=== PATIENT | male | born 1935 | race Caucasian/White ===

== ENCOUNTER → 2017-07-14 | Outpatient (CLI) | payer MEDICARE ==
[~2017-07-14] MED LIST: ACET1TAB25 PO; ASPI-1012 PO; ATEN50TA PO; FURO40TA5 PO; HYDR-309 PO; METO50TA18 PO; PANT40TA25 PO; PRAV40TA3 PO; PROB500T26 PO; TAMS0.4C32 PO
== END | disposition home or self-care (01) ==
LOC: RAH 08:50
PROVIDERS: ATTEND Internal Medicine
DX: Z01.818 Encounter for other preprocedural examination (principal); I50.30 Unspecified diastolic (congestive) heart failure; I12.9 Hypertensive chronic kidney disease with stage 1 through stage 4 chronic kidney disease, or unspecified chronic kidney disease; J44.9 Chronic obstructive pulmonary disease, unspecified
CPT/HCPCS: 71046

== ENCOUNTER 2017-07-22 15:00 | Inpatient (IN) | payer MEDICARE ==
[~2017-07-22] VITALS: Ht 165.1 cm; Wt 70.1 kg
[~2017-07-22 15:00] MED LIST changes: -ACET1TAB25 PO; -ASPI-1012 PO; -ATEN50TA PO; -FURO40TA5 PO; -HYDR-309 PO; -METO50TA18 PO; -PANT40TA25 PO; -PROB500T26 PO
[2017-07-22 15:10] VITALS: BP 151/68
[2017-07-22 15:39] LABS: APPEARANCE,URINE Clear (CLEAR); BILIRUBIN,URINE Negative (NEGATIVE); COLOR,URINE Yellow (YELLOW); GLUCOSE, URINE (UA) Negative (NEGATIVE); KETONES,URINE Negative (NEGATIVE); LEUKOCYTE ESTERASE ,URINE Negative (NEGATIVE); NITRATE,URINE Negative (NEGATIVE); OCCULT BLOOD,URINE Negative (NEGATIVE); PROTEIN,URINE Negative (NEGATIVE); UROBILINOGEN,URINE 0.2 mg/dL (0.2-1.0)
[2017-07-22] MEDS ORDERED: ACET1TAB25 PO (15:47)
[2017-07-22] MEDS ORDERED: PANT40TA25 PO (15:47)
[2017-07-22] MEDS ORDERED: METO50TA18 PO (15:47)
[2017-07-22] MEDS ORDERED: PROB500T26 PO (15:47)
[2017-07-25] VITALS (22 sets, daily range): BP systolic 119–188; BP diastolic 40–84
[2017-07-25] MEDS ORDERED: LACTATED RINGERS 1000ML 1,000 ML IV ONE (06:52)
[2017-07-25] MEDS: CEFAZOLIN SODIUM 1 GM VIAL IVP SCH ×4 (07:00→23:54)
[2017-07-25] MEDS ORDERED: CEFAZOLIN SODIUM 1 GM VIAL ONE ×2 (07:21→11:23)
[2017-07-25] MEDS ORDERED: TRANEXAMIC ACID 1000MG/10ML IV ONE (07:21)
[2017-07-25] MEDS ORDERED: ONDANSETRON HCL 4 MG/2 ML VIAL ONE (07:37)
[2017-07-25] MEDS ORDERED: GLYCOPYRROLATE 0.2 MG/ML 5 ML VIAL ONE (07:37)
[2017-07-25] MEDS ORDERED: NEOSTIGMINE 5MG/5ML SYR IV ONE (07:37)
[2017-07-25] MEDS ORDERED: DEXAMETHASONE SOD PHOSPHATE 10MG/ML 1ML VIAL ONE (07:37)
[2017-07-25] MEDS ORDERED: SUCCINYLCHOLINE 200MG/10ML SYR ONE (07:37)
[2017-07-25] MEDS ORDERED: LIDOCAINE PF 2% 5ML ABBOJECT ONE (07:37)
[2017-07-25] MEDS ORDERED: PROPOFOL 10 MG/ML 20ML VIAL IV ONE (07:37)
[2017-07-25] MEDS ORDERED: MIDAZOLAM HCL 1 MG/ML 2ML VIAL ONE (07:38)
[2017-07-25] MEDS ORDERED: FENTANYL CITRATE PF 50 MCG/1 ML 2ML VIAL ONE (07:38)
[2017-07-25] MEDS ORDERED: CEFAZOLIN SODIUM 1 GM VIAL IRRIG ONE (09:29)
[2017-07-25] MEDS ORDERED: POTASSIUM CHLORIDE 10% ELIXIR 20 MEQ/15 ML UDCUP PO PRN (11:45)
[2017-07-25] MEDS ORDERED: KETOROLAC TROMETHAMINE 15MG/ML IV PRN (11:45)
[2017-07-25] MEDS ORDERED: FERROUS FUMARATE 324 MG TABLET PO PRN (11:45)
[2017-07-25] MEDS ORDERED: DIPHENHYDRAMINE HCL 25 MG CAPSULE PO PRN (11:45)
[2017-07-25] MEDS ORDERED: LIDOCAINE HCL-MPF 1% 2ML VIAL IVP PRN (11:45)
[2017-07-25] MEDS ORDERED: POTASSIUM CHLORIDE 20 MEQ ERTAB PO PRN (11:45)
[2017-07-25] MEDS ORDERED: DiphenhydrAMINE HCL 50 MG/ML VIAL IVP PRN (11:45)
[2017-07-25] MEDS ORDERED: TRAMADOL HCL 50 MG TABLET PO PRN (11:45)
[2017-07-25] MEDS ORDERED: POTASSIUM CHLORIDE 20MEQ/100ML 100 ML IV PRN (11:45)
[2017-07-25] MEDS ORDERED: TEMAZEPAM 15 MG CAPSULE PO PRN (11:45)
[2017-07-25] MEDS ORDERED: CALCIUM CARBONATE 500 MG TABLET PO PRN (11:45)
[2017-07-25] MEDS ORDERED: PROMETHAZINE HCL 25 MG/ML 1ML AMPULE IM PRN (11:45)
[2017-07-25] MEDS ORDERED: OXYCODONE HCL 5 MG TAB PO PRN (11:45)
[2017-07-25] MEDS ORDERED: MORPHINE SULFATE 2 MG/ML 1ML SYG ONE (12:13)
[2017-07-25] MEDS ORDERED: MEPERIDINE-PF 50 MG/ML SYG ONE (12:30)
[2017-07-25] MEDS ORDERED: HYDRALAZINE HCL 20 MG/ML VIAL ONE (12:47)
[2017-07-25] MEDS: ACETAMINOPHEN 325 MG TAB PO SCH ×3 (15:01→23:53)
[2017-07-25] MEDS: PSYLLIUM SEED 1 EACH PACKET PO SCH (15:02)
[2017-07-25] MEDS ORDERED: CEFAZOLIN 2GM / 50 ML 50 ML IV SCH (16:45)
[2017-07-25] MEDS: SODIUM CHLORIDE 0.9% 1000ML 1,000 ML IV SCH ×2 (16:56→18:37)
[2017-07-25] MEDS: OXYCODONE HCL 5 MG TAB PO PRN (18:36)
[2017-07-25] MEDS ORDERED: ASPIRIN 325 MG TABLET PO SCH (21:00)
[2017-07-25] MEDS: CELECOXIB 200 MG CAP PO SCH (22:11)
[2017-07-25] MEDS: FAMOTIDINE 20MG TAB 20 MG TAB PO SCH (22:11)
[2017-07-25] MEDS: PREGABALIN 25 MG CAP PO SCH (22:12)
[2017-07-26 00:24] VITALS: BP 145/67
[2017-07-26 04:49] VITALS: BP 151/75
[2017-07-26] MEDS: ACETAMINOPHEN 325 MG TAB PO SCH ×3 (05:13→20:57)
[2017-07-26] MEDS: OXYCODONE HCL 5 MG TAB PO PRN (05:13)
[2017-07-26 05:16] LABS: HEMATOCRIT 28.5 % (42-54); MEAN CORPUSCULAR HEMOGLOBIN 31.2 pg (27.0-33.0); MEAN CORPUSCULAR HGB CONC 35.8 g/dL (32.0-36.0); MEAN CORPUSCULAR VOLUME 87.2 fL (79-99); PLATELET COUNT (AUTO) 157 K/uL (130-400); RED BLOOD CELL COUNT(AUTO) 3.27 MIL/uL (4.50-6.20); RED CELL DISTRIBUTION WIDTH 13.7 % (11.0-15.5); WHITE BLOOD COUNT (AUTO) 6.6 K/uL (4.8-10.8)
[2017-07-26 05:25] LABS: CREATININE 0.9 mg/dL (0.5-1.5); POTASSIUM 4.3 mmol/L (3.5-5.1)
[2017-07-26] MEDS: SODIUM CHLORIDE 0.9% 1000ML 1,000 ML IV SCH (07:38)
[2017-07-26 08:22] VITALS: BP 149/73
[2017-07-26] MEDS: PROBENECID 250 MG PO SCH ×2 (09:00→21:00)
[2017-07-26] MEDS: CELECOXIB 200 MG CAP PO SCH ×2 (09:58→20:55)
[2017-07-26] MEDS: PREGABALIN 25 MG CAP PO SCH ×2 (09:58→20:55)
[2017-07-26] MEDS: FAMOTIDINE 20MG TAB 20 MG TAB PO SCH ×2 (09:58→20:55)
[2017-07-26] MEDS: TAMSULOSIN HCL 0.4 MG CAP.ER.24H PO SCH (09:58)
[2017-07-26] MEDS: POLYETHYLENE GLYCOL 3350 17 GM POWD.PACK PO SCH (09:58)
[2017-07-26] MEDS: PANTOPRAZOLE SODIUM 40 MG TABLET.DR PO SCH (09:58)
[2017-07-26] MEDS: METOPROLOL TARTRATE 50 MG TAB PO SCH ×2 (09:58→20:55)
[2017-07-26] MEDS: PSYLLIUM SEED 1 EACH PACKET PO SCH (12:02)
[2017-07-26 12:26] VITALS: BP 116/59
[2017-07-26 17:30] VITALS: BP 115/56
[2017-07-26 20:45] VITALS: BP 115/50
[2017-07-26] MEDS: ASPIRIN 325 MG TABLET PO SCH (20:55)
[2017-07-26] MEDS ORDERED: ATORVASTATIN CALCIUM 10 MG TABLET PO SCH (21:00)
[2017-07-27 00:39] VITALS: BP 112/46
[2017-07-27 04:33] VITALS: BP 130/72
[2017-07-27] MEDS: ACETAMINOPHEN 325 MG TAB PO SCH ×2 (04:34→11:06)
[2017-07-27 06:13] LABS: CREATININE 1.1 mg/dL (0.5-1.5); POTASSIUM 4.2 mmol/L (3.5-5.1)
[2017-07-27 06:16] LABS: HEMATOCRIT 28.9 % (42-54); MEAN CORPUSCULAR HEMOGLOBIN 29.9 pg (27.0-33.0); MEAN CORPUSCULAR HGB CONC 34.2 g/dL (32.0-36.0); MEAN CORPUSCULAR VOLUME 87.3 fL (79-99); PLATELET COUNT (AUTO) 145 K/uL (130-400); RED BLOOD CELL COUNT(AUTO) 3.31 MIL/uL (4.50-6.20); RED CELL DISTRIBUTION WIDTH 13.8 % (11.0-15.5)
[2017-07-27 08:11] VITALS: BP 133/64
[2017-07-27] MEDS: ASPIRIN 325 MG TABLET PO SCH (08:36)
[2017-07-27] MEDS: POLYETHYLENE GLYCOL 3350 17 GM POWD.PACK PO SCH (08:36)
[2017-07-27] MEDS: METOPROLOL TARTRATE 50 MG TAB PO SCH (08:36)
[2017-07-27] MEDS: FAMOTIDINE 20MG TAB 20 MG TAB PO SCH (08:36)
[2017-07-27] MEDS: CELECOXIB 200 MG CAP PO SCH (08:36)
[2017-07-27] MEDS: PANTOPRAZOLE SODIUM 40 MG TABLET.DR PO SCH (08:36)
[2017-07-27] MEDS: TAMSULOSIN HCL 0.4 MG CAP.ER.24H PO SCH (08:36)
[2017-07-27] MEDS: PREGABALIN 25 MG CAP PO SCH (08:36)
[2017-07-27] MEDS: PROBENECID 250 MG PO SCH (08:37)
[2017-07-27] MEDS ORDERED: BISACODYL 5 MG TABLET.DR PO PRN ×2 (10:15→11:45)
[2017-07-27] MEDS: PSYLLIUM SEED 1 EACH PACKET PO SCH (11:33)
[2017-07-27 11:58] VITALS: BP 120/54
[2017-07-27] MEDS ORDERED: ASPI-1012 PO (12:39)
[2017-07-27] MEDS ORDERED: HYDR-309 PO (12:39)
[2017-07-28] MEDS ORDERED: BISACODYL 10 MG SUPP.RECT RC PRN (11:45)
== END 2017-07-27 16:41 | disposition home health service (06) | DRG 470 ==
LOC: EDSTATUS 15:00 → DAHIP 07-25 06:05 → 4AH 07-25 12:48
PROVIDERS: ADMIT Orthopaedic Surgery; ATTEND Orthopaedic Surgery
PROC: 0SR90JZ Replacement of Right Hip Joint with Synthetic Substitute, Open Approach (ICD-10-PCS; principal; 2017-07-25 08:20)
DX: M16.11 Unilateral primary osteoarthritis, right hip (principal); I11.0 Hypertensive heart disease with heart failure; I50.9 Heart failure, unspecified; Z96.642 Presence of left artificial hip joint; Z96.653 Presence of artificial knee joint, bilateral; M10.9 Gout, unspecified; K21.9 Gastro-esophageal reflux disease without esophagitis
CPT/HCPCS: 36415; 76000; 80048; 81003; 85027; 88304; 88311; A4218; C1713; C1776; J0330; J0360; J0690; J1100; J1885; J2001; J2175; J2250; J2405; J2704; J2710; J3010; J3490; J7030; J7120

== ENCOUNTER 2019-12-08 | Emergency (ER) | payer OTHER | END 2019-12-08 11:11 | disposition home or self-care (01) ==

== ENCOUNTER → 2020-01-09 | Outpatient (CLI) | payer OTHER ==
[~2020-01-09] MED LIST changes: +ASPI-1012 PO; +HYDR-4457 PO; +METO50TA18 PO; +PANT40TA25 PO; +PROB500T26 PO
== END | disposition home or self-care (01) ==
LOC: RAH 10:19
PROVIDERS: ATTEND Internal Medicine
DX: I65.23 Occlusion and stenosis of bilateral carotid arteries (principal); G31.1 Senile degeneration of brain, not elsewhere classified; I67.82 Cerebral ischemia
CPT/HCPCS: 70450; 93880

== ENCOUNTER 2020-09-22 19:08 | Emergency (ER) | payer OTHER ==
[2020-09-22] MEDS ORDERED: EPINEPHRINE 0.1 MG/ML 10 ML SYG IVP ONE (19:09)
[2020-09-22] MEDS ORDERED: SODIUM BICARB 8.4% 50ML SYRINGE IVP ONE (19:09)
[2020-09-22] MEDS ORDERED: ATROPINE SULFATE 0.1 MG/ML 10 ML SYG IVP ONE (19:09)
[2020-09-22] MEDS ORDERED: MAGNESIUM SULFATE 1 GM/2 ML VIAL IM ONE (19:09)
[2020-09-22] MEDS ORDERED: ACETAMINOPHEN EXTRA STRENGTH 500 MG TABLET ONE (20:28)
[2020-09-22] MEDS ORDERED: ZOSYN 3.375GM+NS 50ML 50 ML IV ONE (20:28)
[2020-09-22] MEDS ORDERED: ONDANSETRON HCL 4 MG/2 ML VIAL ONE (20:28)
[2020-09-22 20:36] LABS: BASOPHILS % (AUTO) 1.4 % (0.0-5.0); LYMPHOCYTES % (AUTO) 12.8 % (21.0-51.0); MEAN CORPUSCULAR HEMOGLOBIN 28.5 pg (27.0-33.0); MEAN CORPUSCULAR HGB CONC 31.8 g/dL (32.0-36.0); MEAN CORPUSCULAR VOLUME 89.9 fL (79-99); MONOCYTES % (AUTO) 10.1 % (3.0-13.0); NEUTROPHILS % (AUTO) 74.6 % (40.0-77.0); PLATELET COUNT (AUTO) 335 K/uL (130-400); RED BLOOD CELL COUNT(AUTO) 4.45 MIL/uL (4.50-6.20); RED CELL DISTRIBUTION WIDTH 14.4 % (11.0-15.5); WHITE BLOOD COUNT (AUTO) 4.4 K/uL (4.8-10.8)
[2020-09-22 20:46] LABS: CREATININE 2.7 mg/dL (0.5-1.5); POTASSIUM 4.3 mmol/L (3.5-5.1)
[2020-09-22 20:54] LABS: INR 1.2 (0.85-1.15); PROTHROMBIN TIME 12.9 SEC (9.6-11.6)
[2020-09-22 20:55] LABS: PARTIAL THROMBOPLASTIN TIME 25.3 SEC (26.3-35.5)
[2020-09-22 20:57] LABS: ALBUMIN 2.6 g/dL (3.5-5.0); BILIRUBIN,TOTAL 0.8 mg/dL (0.2-1.0); TOTAL PROTEIN, SERUM 7.4 g/dL (6.0-8.3); TROPONIN I 0.06 ng/mL (0.00-0.06)
[2020-09-22 21:00] LABS: LIPASE 62 U/L (114-286)
[2020-09-22 21:14] LABS: B-TYPE NATRIURETIC PEPTIDE 122 pg/mL (0-100)
[2020-09-22 21:15] LABS: AMMONIA 12 umol/L (11-32)
== END 2020-09-22 22:06 | disposition expired ==
LOC: EDH 19:08
DX: I46.9 Cardiac arrest, cause unspecified (principal); R11.10 Vomiting, unspecified; R14.0 Abdominal distension (gaseous); Z20.822 Contact with and (suspected) exposure to COVID-19; I10 Essential (primary) hypertension; E78.00 Pure hypercholesterolemia, unspecified
CPT/HCPCS: 31500; 36415; 71045; 74018; 80053; 82140; 82550; 83605; 83690; 83874; 83880; 84145; 84484; 85025; 85610; 85730; 86140; 86900; 86901; 87040 ×2; 87426; 87804 ×2; 92950; 93005; 96365; 96366; 96375; 99285; A9900; J0171; J0461; J2405; J2543; J3475; J3490; U0003

== ENCOUNTER → 2020-09-22 | Outpatient (CLI) | payer OTHER ==
[~2020-09-22] MED LIST changes: -PANT40TA25 PO; +PANT40TA54 PO
== END | disposition home or self-care (01) ==
LOC: RAH 14:36
PROVIDERS: ATTEND Internal Medicine
DX: R11.0 Nausea (principal); Z96.643 Presence of artificial hip joint, bilateral
CPT/HCPCS: 74018